=== PATIENT | female | born 1940 | race Caucasian/White ===

== ENCOUNTER → 2016-07-19 | Outpatient (CLI) | payer MEDICARE, OTHER ==
[~2016-07-19] MED LIST: AMLO5TAB2 PO; ASPI-515 PO; LOSA1TAB17 PO; METF500T4 PO; METO50TA82 PO; MULT-717 PO
== END | disposition home or self-care (01) ==
LOC: PETCFH 09:22
PROVIDERS: ATTEND Internal Medicine Hematology & Oncology
DX: C88.4 Extranodal marginal zone B-cell lymphoma of mucosa-associated lymphoid tissue [MALT-lymphoma] (principal)
CPT/HCPCS: 78815; A9552

== ENCOUNTER → 2016-11-25 | Outpatient (CLI) | payer MEDICARE, OTHER | END | disposition home or self-care (01) | LOC: CVU 08:37 | PROVIDERS: ATTEND Nurse Practitioner Family | DX: I70.293 Other atherosclerosis of native arteries of extremities, bilateral legs (principal); E11.9 Type 2 diabetes mellitus without complications; G62.9 Polyneuropathy, unspecified; Z87.891 Personal history of nicotine dependence | CPT/HCPCS: 93922; 93925 ==

== ENCOUNTER → 2017-07-24 | Outpatient (CLI) | payer MEDICARE, OTHER ==
[~2017-07-24] MED LIST changes: -LOSA1TAB17 PO; +LOSA1TAB22 PO
== END ==
LOC: PETCFH 13:15
PROVIDERS: ATTEND Internal Medicine Hematology & Oncology
DX: C88.4 Extranodal marginal zone B-cell lymphoma of mucosa-associated lymphoid tissue [MALT-lymphoma] (principal); C83.84 Other non-follicular lymphoma, lymph nodes of axilla and upper limb; R59.9 Enlarged lymph nodes, unspecified
CPT/HCPCS: 78815; A9552

== ENCOUNTER → 2017-08-13 | Outpatient (CLI) | payer MEDICARE, OTHER | END | disposition home or self-care (01) | LOC: RAD 09:40 | PROVIDERS: ATTEND Nurse Practitioner Family | DX: S32.010A Wedge compression fracture of first lumbar vertebra, initial encounter for closed fracture (principal); M47.816 Spondylosis without myelopathy or radiculopathy, lumbar region; M43.16 Spondylolisthesis, lumbar region; X58.XXXA Exposure to other specified factors, initial encounter; Y93.89 Activity, other specified; Y92.89 Other specified places as the place of occurrence of the external cause; Y99.8 Other external cause status | CPT/HCPCS: 72131 ==

== ENCOUNTER → 2017-09-19 | Outpatient (CLI) | payer MEDICARE, OTHER ==
[~2017-09-19] MED LIST changes: -METF500T4 PO; +METF500T5 PO
== END | disposition home or self-care (01) ==
LOC: CFH 13:30
PROVIDERS: ATTEND Physician Assistant
DX: Z13.820 Encounter for screening for osteoporosis (principal); M48.56XA Collapsed vertebra, not elsewhere classified, lumbar region, initial encounter for fracture; M85.89 Other specified disorders of bone density and structure, multiple sites; M54.16 Radiculopathy, lumbar region; M51.36 Other intervertebral disc degeneration, lumbar region
CPT/HCPCS: 72148; 77080

== ENCOUNTER → 2017-12-25 | Outpatient (CLI) | payer MEDICARE, OTHER ==
[~2017-12-25] MED LIST changes: -AMLO5TAB2 PO; +AMLO5TAB7 PO; +METF500T17 PO; -METF500T5 PO
== END | disposition home or self-care (01) ==
LOC: CFH 14:27
PROVIDERS: ATTEND Physician Assistant Surgical
DX: M47.896 Other spondylosis, lumbar region (principal); M43.8X6 Other specified deforming dorsopathies, lumbar region
CPT/HCPCS: 72100

== ENCOUNTER → 2018-06-24 | Outpatient (CLI) | payer MEDICARE, OTHER ==
[~2018-06-24] MED LIST changes: +AMLO-150 PO; -AMLO5TAB7 PO
== END | disposition home or self-care (01) ==
LOC: CFH 10:48
PROVIDERS: ATTEND Physician Assistant
DX: M51.36 Other intervertebral disc degeneration, lumbar region (principal); M48.062 Spinal stenosis, lumbar region with neurogenic claudication; G89.29 Other chronic pain
CPT/HCPCS: 72120

== ENCOUNTER → 2018-07-16 | Outpatient (CLI) | payer MEDICARE, OTHER | END | disposition home or self-care (01) | LOC: CFH 11:34 | PROVIDERS: ATTEND Physician Assistant | DX: M43.16 Spondylolisthesis, lumbar region (principal); M48.061 Spinal stenosis, lumbar region without neurogenic claudication; M53.2X6 Spinal instabilities, lumbar region | CPT/HCPCS: 72110 ==

== ENCOUNTER → 2019-01-25 | Outpatient (CLI) | payer MEDICARE, OTHER | END | disposition home or self-care (01) | LOC: CFH 12:36 | PROVIDERS: ATTEND Nurse Practitioner Family | DX: M85.89 Other specified disorders of bone density and structure, multiple sites (principal); N95.1 Menopausal and female climacteric states; N95.8 Other specified menopausal and perimenopausal disorders; F17.200 Nicotine dependence, unspecified, uncomplicated; E11.9 Type 2 diabetes mellitus without complications | CPT/HCPCS: 77080 ==